=== PATIENT | male | born 1960 | race American Indian/Alaskan Native ===

== ENCOUNTER 2019-11-28 07:21 | Day surgery (SDC) | payer OTHER ==
[2019-11-28] MEDS ORDERED: ASPIRIN EC 325 MG TAB PO ONE (08:30)
[2019-11-28 08:42] LABS: Eosinophils # (Auto) 0.3 K/mm3 (0.0-0.4); Eosinophils % (Auto) 6.4 % (0.0-4.3); Hematocrit 39.4 % (35.5-45.6); Hemoglobin 13.4 gm/dl (11.8-15.2); Lymphocytes # (Auto) 1.4 K/mm3 (1.2-5.4); Lymphocytes % (Auto) 32.3 % (13.4-35.0); Mean Corpuscular HGB Conc 34 % (32-34); Mean Corpuscular Volume 90 fl (84-94); Monocytes # (Auto) 0.6 K/mm3 (0.0-0.8); Monocytes % (Auto) 13.6 % (0.0-7.3); Platelet Count 187 K/mm3 (140-440); Red Blood Count 4.37 M/mm3 (3.65-5.03); Red Cell Distribution Width 14.4 % (13.2-15.2)
[2019-11-28 08:51] LABS: INR 0.91 (0.87-1.13)
[2019-11-28 08:52] LABS: Partial Thromboplastin Time 21.3 Sec. (24.2-36.6)
[2019-11-28 08:55] LABS: BUN/Creatinine Ratio 11; Blood Urea Nitrogen 16 mg/dL (9-20); Calcium 9.7 mg/dL (8.4-10.2); Hemolysis Index 47
[2019-11-28] MEDS ORDERED: HEPARIN/NS 5000 UNIT/500ML 1,000 ML IR ONE (10:46)
[2019-11-28] MEDS: SODIUM CHLORIDE 0.9% 500 ML 500 ML IV SCH ×2 (10:55→11:22)
[2019-11-28] MEDS: MIDAZOLAM 2 MG/2 ML INJ ONE ×3 (11:19→11:30)
[2019-11-28] MEDS: LIDOCAINE (2%) 20 MG/1 ML VIAL 20 ML MDV INFILTRATI ONE ×2 (11:20→11:29)
[2019-11-28] MEDS: fentaNYL 100 MCG/2 ML INJ ONE ×3 (11:20→11:30)
[2019-11-28] MEDS: HEPARIN 10,000 UNITS/10 ML VIAL ONE ×2 (11:21→11:30)
[2019-11-28] MEDS: VERAPAMIL 5 MG/2 ML INJ ONE ×2 (11:21→11:30)
[2019-11-28] MEDS: NITROGLYCERIN SYRINGE 3 ML ONE ×2 (11:22→11:30)
[2019-11-28] MEDS ORDERED: FUROSEMIDE 40 MG/4 ML INJ ONE (11:49)
[2019-11-28] MEDS ORDERED: traMADol 50 MG TAB PO PRN (12:06)
[2019-11-28] MEDS ORDERED: HYDROcodone/ACETAMINOPHEN 5-325 MG TAB PO PRN (12:06)
--- NOTE | 2019-11-28 12:06 | Discharge Summary ---
Short Stay Discharge Plan Activity: advance as tolerated Weight Bearing Status: Full Weight Bearing Diet: low fat, low cholesterol, low salt Wound: keep clean and dry Special Instructions: no heavy lifting (3 days) Follow up with: PRIMARY MD URSZULA [Primary Care Provider] - 7 Days LIZETTE WREN MD [Staff Physician] - 7 Days
[2019-11-28] MEDS ORDERED: cloNIDine 0.1 MG TAB PO PRN (12:07)
[2019-11-28] MEDS ORDERED: SODIUM CHLORIDE 0.9% 1000 ML 1,000 ML IV SCH (12:15)
--- NOTE | 2019-11-28 13:44 | Cardiac Catherization Report ---
CARDIAC CATHETERIZATION REPORT REASON FOR PROCEDURE: Dilated cardiomyopathy, exertional chest pain and dyspnea, abnormal thallium stress test. PROCEDURE: 1. Left heart catheterization. 2. Selective left and right coronary angiography. 3. Left ventricular angiography. 4. Sedation time start 11:27, end 11:40. DESCRIPTION OF PROCEDURE: The patient was prepped and draped in a sterile fashion after informed consent. The right radial cath site was prepped and draped after a negative John's test. The right radial artery was entered using Seldinger technique followed by placement of a 6-Portuguese hydrophilic sheath. Routine radial cocktail was administered via the sheath. Selective left and right coronary angiography was performed using a #3.5 left Magalie and #4 right Magalie. Pigtail catheter was used for left ventricular angiography. The catheters were removed, sheath removed, and hemostasis achieved using a TR band. The patient was returned to the postprocedure unit in stable condition. There were no complications. FINDINGS: HEMODYNAMICS: Left ventricular end-diastolic pressure was 35-40, following coronary angiography. Ascending aortic pressure was 157/92. There was no significant pressure gradient on pullback across the aortic valve. CORONARY ANGIOGRAPHY: The left main coronary artery was angiographically normal. There were mild irregularities of the mid LAD, otherwise this vessel and its diagonal branches were angiographically normal. The circumflex artery and its obtuse marginal branches were angiographically normal. The right coronary artery was dominant and similarly angiographically normal. The left ventricle was severely dilated. There was severe left ventricular systolic dysfunction with diffuse hypokinesis. Left ventricular ejection fraction less than 20%. CONCLUSION: 1. Mild irregularities of the mid LAD, otherwise essentially angiographically normal coronary arteries. 2. Dilated, nonischemic cardiomyopathy, severe left ventricular systolic dysfunction, ejection fraction less than 20%. RECOMMENDATIONS: Medical therapy for nonischemic cardiomyopathy. JOB# [id number] CA/NTS
[2019-11-28 15:20] VITALS: BP 143/89
== END 2019-11-28 16:20 | disposition home or self-care (01) ==
LOC: CATHLABREC 07:21
PROVIDERS: ATTEND Internal Medicine Cardiovascular Disease
DX: I42.0 Dilated cardiomyopathy (principal); R07.89 Other chest pain; R94.39 Abnormal result of other cardiovascular function study; F17.210 Nicotine dependence, cigarettes, uncomplicated; I11.0 Hypertensive heart disease with heart failure; I50.20 Unspecified systolic (congestive) heart failure; E66.9 Obesity, unspecified; F10.20 Alcohol dependence, uncomplicated; G47.30 Sleep apnea, unspecified; Z68.41 Body mass index [BMI] 40.0-44.9, adult; Z79.899 Other long term (current) drug therapy; Z83.3 Family history of diabetes mellitus; Z98.890 Other specified postprocedural states; Z82.49 Family history of ischemic heart disease and other diseases of the circulatory system
CPT/HCPCS: 36415; 80048; 85025; 85610; 85730; 93005; 93458; 99156; C1894; J1644; J1940; J2250; J3010; J7040; Q9967